=== PATIENT | male | born 1960 | race Caucasian/White ===

== ENCOUNTER 2018-10-30 00:39 | Emergency (ER) | payer BC, SELFPAY ==
[2018-10-30 00:51] VITALS: BP 123/83; PULSE 93; RESP 16; TEMP 36.6; O2SAT 97; BMI 31.9
--- NOTE | 2018-10-30 01:23 | PC.NURSE ---
Pt upset about waiting for 30 minutes for treatment. LWBS.
--- NOTE | 2018-10-30 04:57 | ED_ITS ---
HPI - Dental/Oral General Chief complaint: Dental/Oral Stated complaint: right side tooth pain Related Data Allergies Allergy/AdvReac Type Severity Reaction Status Date / Time No Known Drug Allergies Allergy Verified 10/30/18 00:51 ON LICENSE OF [facility] Social History Smoking Status: Current every day smoker Social History Smoking Status: Current every day smoker Exam Initial Vital Signs Initial Vital Signs: Vital Signs Temperature 97.9 F 10/30/18 00:51 Pulse Rate 93 H 10/30/18 00:51 Respiratory Rate 16 10/30/18 00:51 Blood Pressure 123/83 10/30/18 00:51 Pulse Oximetry 97 10/30/18 00:51 Course Vital Signs - 8 hr 10/30/18 00:51 Temperature 97.9 F Pulse Rate 93 H Respiratory Rate 16 Blood Pressure 123/83 Pulse Oximetry 97 Discharge Plan Departure Patient Disposition: Left Without Being Seen Clinical Impression: Patient left without being seen Discharge Date/Time: 10/30/18 01:29 Interventions: ED Discharge Assessment Last Done: 10/30/18 01:24
== END 2018-10-30 01:29 | disposition left against medical advice (07) ==
PROVIDERS: Emergency Provider Emergency Medicine
DX: Z53.21 Procedure and treatment not carried out due to patient leaving prior to being seen by health care provider (principal)
CPT/HCPCS: 99282